=== PATIENT | female | born 1955 | race Two or more races ===

== ENCOUNTER 2019-05-18 17:34 | Emergency (ER) | payer MEDICAID ==
[~2019-05-18] VITALS: Ht 157.5 cm; Wt 100.0 kg
[2019-05-18] MEDS ORDERED: KETOROLAC 60MG/2ML VIAL IM STA (19:17)
[2019-05-18] MEDS ORDERED: DEXAMETHASONE 10 MG/ML VIAL IM ONE (19:30)
[2019-05-18 19:47] VITALS: BP 146/85
== END 2019-05-18 20:00 | disposition home or self-care (01) ==
LOC: ER 17:34
DX: M25.562 Pain in left knee (principal); M17.12 Unilateral primary osteoarthritis, left knee; E11.9 Type 2 diabetes mellitus without complications; Z98.890 Other specified postprocedural states
CPT/HCPCS: 82962; 96372; 99283; J1100; J1885